=== PATIENT | female | born 1965 | race African-American/Black ===

== ENCOUNTER 2019-02-12 11:10 | Outpatient (CLI) | payer OTHER ==
--- NOTE | 2019-02-12 11:51 | RAD ---
RIGHT HIP TWO VIEWS: Indication: Disability evaluation. Comparison: 05-26-13 FINDINGS: There is mild degenerative sclerosis of the right hip. There are mild degenerative changes of the sym physis pubis. Visualized right SI joint appears within normal limits. IMPRESSION: Mild degenerative changes right hip. POS: [facility]
--- NOTE | 2019-02-12 11:53 | RAD ---
LUMBAR SPINE TWO VIEWS: Indication: Disability examination. Comparison: None. FINDINGS: There is grade I anterolisthesis of L4 on L5. There is multilevel mild disc degenerative disease. The re is multilevel facet osteoarthritic change. IMPRESSION: Moderate spondylosis lumbar spine. Grade I anterolisthesis of L4 on L5. POS: [facility]
== END 2019-02-12 11:11 | disposition home or self-care (01) ==
LOC: BICRAD 11:10
PROVIDERS: ATTEND Internal Medicine
DX: Z02.71 Encounter for disability determination (principal); M47.816 Spondylosis without myelopathy or radiculopathy, lumbar region; M43.16 Spondylolisthesis, lumbar region; M16.11 Unilateral primary osteoarthritis, right hip
CPT/HCPCS: 72100

== ENCOUNTER 2021-04-24 17:45 | Emergency (ER) | payer SELFPAY ==
[2021-04-24 18:32] LABS: #Basophils 0.1 thou/uL (0.0-0.2); #Monocytes 0.2 thou/uL (0.11-0.59); #Neutrophils 5.8 thou/uL (1.40-6.50); %Basophils 0.7 % (0.0-1.0); %Eosinophils 0.2 % (0.0-10.0); %Lymphocytes 24.4 % (21.0-51.0); %Monocytes 2.7 % (0.0-10.0); Hemoglobin 12.4 g/dL (12.0-16.0); Mean Corpuscular HGB CONC 33.4 g/dL (32.0-36.0); Mean Corpuscular Hemoglobin 30.9 pg (27.0-31.0); Mean Corpuscular Volume 92.5 fL (78.0-98.0); Mean Platelet Volume 8.7 fL (7.4-10.4); Platelet Count 213 thou/uL (130-400); RBC Distribution Width 13.4 % (11.5-14.5); Red Blood Cell (RBC) Count 4.01 mill/uL (4.20-5.40)
[2021-04-24 18:54] LABS: ALT (SGPT) 11 U/L (8-55); AST (SGOT) 13 U/L (5-34); Albumin 4.1 g/dL (3.5-5.0); Alkaline Phosphatase 67 U/L (40-110); Anion Gap 16 mmol/L (10-20); BUN (Urea Nitrogen) 17 mg/dL (9.8-20.1); Bilirubin, Total 0.4 mg/dL (0.2-1.2); Calc. Creatinine Clearance 0 mL/min (70-130); Calcium 9.4 mg/dL (7.8-10.44); Carbon Dioxide 24 mmol/L (22-29); Chloride 104 mmol/L (98-107); Globulin 3.8 g/dL (2.4-3.5); Glucose 105 mg/dL (70-105); Lipase 23 U/L (8-78); Potassium 3.6 mmol/L (3.5-5.1); Protein, Total 7.9 g/dL (6.0-8.3); Sodium 140 mmol/L (136-145)
== END 2021-04-24 19:57 | disposition left against medical advice (07) ==
LOC: ERS 17:45
DX: Z53.21 Procedure and treatment not carried out due to patient leaving prior to being seen by health care provider (principal)
CPT/HCPCS: 36415; 80053; 83690; 85025; 93005; 93010